=== PATIENT | female | born 1965 | race Caucasian/White ===

== ENCOUNTER 2017-04-11 12:29 | Day surgery (SDC) | payer OTHER ==
[~2017-04-11] VITALS: Ht 167.6 cm; Wt 66.8 kg
[~2017-04-11 12:29] MED LIST: ALBU18HF INHALATION; ASPI81TA3 PO; ATOR80TA75 PO; BENA10TA48 PO; MONT10TA24 PO; NAPR-260 PO
[2017-04-11 12:59] VITALS: Ht 167.6 cm; Wt 66.8 kg
[2017-04-11 13:44] VITALS: BP 144/63; PULSE 80; RESP 16
--- NOTE | 2017-04-11 14:49 | OPPN ---
Date/Time of Note Date/Time of Note DATE: 04/11/17 TIME: 14:48 Operative Report Preoperative Diagnosis Screening Postoperative Diagnosis Internal hemorrhoids Operation/Procedure Performed Colonoscopy Surgeon see signature line family and divorce legal assistant None Anesthesia: moderate sedation Estimated blood loss: none Transfusion Required none Specimen None Grafts/Implants none Complications none ROGER SELLERS MD Apr 11, 2017 14:49
[2017-04-11] MEDS ORDERED: MIDAZOLAM 1 MG/ML 2 ML INJ ONE ×2 (14:52)
[2017-04-11] MEDS ORDERED: FENTAnyl 50 MCG/ML VIAL ONE (14:52)
[2017-04-11 15:25] VITALS: BP 142/85; RESP 14
--- NOTE | 2017-04-12 06:02 | GILP ---
DATE OF PROCEDURE: NAME OF PROCEDURE: Colonoscopy. SURGEON: Roger Simpson MD. PREOPERATIVE DIAGNOSIS: Screening colonoscopy. POSTOPERATIVE DIAGNOSES 1. Colonoscopy all the way to the cecum. 2. Internal hemorrhoids. 3. No colon neoplasm was identified. INDICATION FOR THE PROCEDURE: Ms. Joelle Rodríguez is a 51-year-old female patient who was scheduled fo r screening colonoscopy. The procedure and possible complications were well explained to the patient. She understood and con sented to the procedure. DESCRIPTION OF PROCEDURE: Under the influence of fentanyl and Versed, the colonoscope was carefully introduced in the rectum and under direct vision, it was advanced all the way to the cecum. FINDINGS: The patient had internal hemorrhoids. No colon neoplasm was identified. The patient tolerated the procedure very well and there was no complication from the procedure. At the end of the procedure, she was awake with stable vital signs and she was discharged home to the [facility] her family. IMPRESSION: Please see postoperative diagnosis. PLAN: Next screening colonoscopy in 10 years. Dictated By: ROGER ADAMSON/HOLDEN Conf#: [id number] DID#: [id number]
== END 2017-04-11 15:44 | disposition home or self-care (01) ==
LOC: GIL 12:29
PROVIDERS: ATTEND Internal Medicine Gastroenterology
DX: Z12.11 Encounter for screening for malignant neoplasm of colon (principal); I10 Essential (primary) hypertension; K64.8 Other hemorrhoids
CPT/HCPCS: 45378; J2250; J3010